=== PATIENT | female | born 1955 | race Asian ===

== ENCOUNTER 2016-07-30 10:07 | Emergency (ER) | payer OTHER ==
[~2016-07-30] VITALS: Ht 165.1 cm; Wt 66.0 kg
[~2016-07-30 10:07] MED LIST: ACET-171 PO
[2016-07-30 10:09] VITALS: PULSE 79; RESP 32; O2SAT 99
--- NOTE | 2016-07-30 10:25 | ED.REPORT ---
HPI-General Illness Date of Service July 30, 2016 ED Provider: The patient is a 60 year old female who was sent to the emergency department from urgent care for chest tightness. The patient was at urgent care complaining of UTI symptoms that started this morning. She gave them a sample that had been dipped and sent for culture. While she was at urgent care she when asked about chest pain or pressure, she admitted to recent chest tightness. The patient reports she occasionally experiences chest tightness when she is getting ready for bed at night. She also mentions she has similar pains when she is under a lot of stress. The pain is usually located to the center of her chest. She is not currently in any pain or discomfort. She is not on any chronic medications. She is currently taking antibiotics that were left over from a previous infection last month. She is unsure which antibiotic it was. Nursing Notes Stated Complaint: POSSIBLE UTI/CHEST PAIN SENT FROM URGENT CARE Chief Complaint: Chest Pain Nursing Notes Reviewed: Yes Allergies: Coded Allergies: tramadol (Unverified Allergy, Unknown, UNKNOWN, 07/30/16) Scheduled Sulfamethoxazole/Trimeth 800-160 mg (Bactrim DS) 1 Each Tablet 1 TABLET PO BID Scheduled PRN Acetaminophen (Acetaminophen) 500 Mg Tablet 500 MG PO Q6H PRN PRN For Pain General Time Seen by MD: 10:25 Chief Complaint Chest pain Hx Obtained From: Patient Arrived By: Walk-in Sudden in Onset?: Yes Onset Occurred: 1 - 4 hours ago Symptom Duration: 16 - 30 minutes Location: : Chest Quality: Painful (tightness) Severity: Current: No pain currently Severity: Maximum: Moderate Recent Healthcare: No recent hospitalization, Recent doctor visit Similar Sx Previous: No Past Medical History Past Medical History Denies Family History Noncontributory Smoking History Unknown if Ever Smoker Social History Other Social History: , Local resident Ambulatory Status Independent Review of Systems Full Review of Systems Cardiovascular: Reports: Chest pain (not currently) Female: Reports: Dysuria, Urinary frequency, Urinary urgency Psychiatric: Reports: Anxiety Complete sys rev & neg: except as marked. Physical Exam Vital Signs Vital Signs Date Time Temp Pulse Resp B/P Pulse Ox O2 Delivery O2 Flow Rate FiO2 07/30/16 11:34 59 14 132/83 07/30/16 11:32 56 163/107 07/30/16 10:35 61 27 147/87 98 Room Air 07/30/16 10:09 36.6 79 32 99 Room Air Initial VS: Reviewed Head / Eyes: Atraumatic, Normocephalic, PERRL ENT: Mucous membranes moist, Conjunctiva normal, No scleral icterus Neck: Supple, Non-tender, Full range of motion Cardiovascular: Regular rate & rhythm, Heart sounds normal, Intact distal pulses Skin: Warm, Dry, No cyanosis Neurologic: Alert, Oriented, Nonfocal Psychiatric: Mood/affect normal, Behavior normal, Normal thought content General/Constitutional: Awake, Alert, Cooperative Respiratory / Chest: Breath sounds NL, Breath sounds = bilat, No respiratory distress, No rales, No rhonchi, No wheezing Costocondral tenderness at the upper left side of the sternum. Abdomen: Soft, No guarding, No rebound, BS normoactive, No distention, No hernia, No palpable mass, No pulsatile mass Tenderness/Guarding/Rebound: Positive: Tender suprapubic Back: No midline vertebral tend Flank / Spine / Paraspinal: Positive: Flank tender R (mild) Interpretation & Diagnostics Lab Results Interpretation Result Diagram: 07/30/16 1130 07/30/16 1130 Test 07/30/16 11:30 White Blood Count 6.5th/mm3 (3.8-10.1) Red Blood Count 4.53mil/mm3 (3.90-5.20) Hemoglobin 13.5g/dL (12.0-15.6) Hematocrit 40.1% (35.0-46.0) Mean Corpuscular Volume 88.5fL (81-100) Mean Corpuscular Hemoglobin 29.8pg (27.0-35.0) Mean Corpuscular Hemoglobin Concent 33.7% (32.0-37.0) Red Cell Distribution Width 12.7% (12.3-15.4) Platelet Count 125bil/L (150-400) Neutrophils (%) (Auto) 63.7% (40-74) Lymphocytes (%) (Auto) 28.0% (14-46) Monocytes (%) (Auto) 5.3% (4-12) Eosinophils (%) (Auto) 2.2% (0-5) Basophils (%) (Auto) 0.6% (0-3) Sodium Level 141mEq/L (134-144) Potassium Level 4.2mEq/L (3.5-5.2) Chloride Level 105mEq/L (97-108) Carbon Dioxide Level 22mmol/L (18-29) Blood Urea Nitrogen 13mg/dL (6-24) Creatinine 0.63mg/dL (0.57-1.00) Estimat Glomerular Filtration Rate 139mL/min (>59) Glucose Level 102mg/dL (60-99) Calcium Level 9.6mg/dL (8.5-10.1) Magnesium Level 2.2mg/dL (1.6-2.6) Total Bilirubin 0.4mg/dL (0.0-1.2) Aspartate Amino Transf (AST/SGOT) 20U/L (0-50) Alanine Aminotransferase (ALT/SGPT) 16U/L (0-32) Alkaline Phosphatase 74U/L (25-150) Troponin T < 0.010ug/L (0.0-0.011) Total Protein 7.5g/dL (6.4-8.4) Albumin 4.5g/dL (3.4-5.0) Hold Pritchett Top Tube Received (Received) ECG Interpretation ECG Interpretation: Sinus rhythm with a rate of 56 Time: 10:40 Interpreted by: ED physician X-Ray Chest Interpretation Chest Xray Interpretation: IMPRESSION: Normal chest Dictated by: Jama Torres M.D. on 07/30/2016 at 11:03 Interpretation / Wet Read by: Interpret - Radiologist Re-Eval/Medical Decision Source of Hx: Old records Time of Eval: 11:43 Re-Evaluation/Progress Note: Discussed plan to wait for lab results. Time of Eval: 13:36 Re-Evaluation/Progress Note: Rechecked the patient. Discussed results, diagnosis, and plan for discharge. All questions were addressed. Counseled Regarding: Diagnosis, Lab results, Need for follow-up, When/why to return to ED Discharge & Departure Primary Impression: UTI (urinary tract infection) Urinary tract infection type: site unspecified Hematuria presence: without hematuria Qualified Code: N39.0 - Urinary tract infection, site not specified Additional Impression: Costochondritis Ruled Out: STEMI (ST elevation myocardial infarction) Disposition: Home Discharge Condition All VS Reviewed: Yes Condition: Stable Patient Instructions: Costochondritis (ED), Urinary Tract Infection in Women ( GEN) Additional Instructions: Thank you for entrusting us with your care today. Your blood work and EKG are reassuring. There is no evidence of a heart attack. I believe your chest pain is consistent with costochondritis. I have attached a packet to your instructions with more information. Your urinalysis does show evidence of a UTI. Take the antibiotics as prescribed. Septra DS am and pm for 7 days. I have electronically sent this to [facility] for you today. Make sure to drink plenty of fluids. Followup with your regular doctor next week if your symptoms are not improving. Seek care sooner for any new or concerning symptoms. Referrals: Jus Oliver DO (PCP) Scribe Attestation Portions of this note were transcribed by Sara Hightower. I, Dr. Sol personally performed the history, physical exam and medical decision-making; I reviewed and confirmed the accuracy of the information in the transcribed note. Signed by: Veronica Tomlin,07/30/2016 at 1400. copies to: Jus Oliver Shawna L MD July 30, 2016 10:25 Sara Hightower July 30, 2016 11:01
[2016-07-30 10:35] VITALS: BP 147/87; PULSE 61; RESP 27; O2SAT 98
--- NOTE | 2016-07-30 11:05 | DRSVH ---
PROCEDURE: X-RAY CHEST ONE VIEW, PORTABLE ([id number]) INDICATIONS: chest pain TECHNIQUE: One view of the chest was acquired. COMPARISON: None. FINDINGS: Surgical changes and devices: None. Lungs and pleura: No pleural effusions or pneumothorax. Lungs are clear. Bilateral nipple shadows. Mediastinum: Mediastinal contours appear normal. Heart size is normal. Bones and chest wall: No suspicious bony lesions. Overlying soft tissues appear unremarkable. IMPRESSION: Normal chest Dictated by: Jama Torres M.D. on 07/30/2016 at 11:03 Approved by: Jama Torres M.D. on 07/30/2016 at 11:04
[2016-07-30 11:32] VITALS: BP 163/107; PULSE 56
[2016-07-30 11:34] VITALS: BP 132/83; PULSE 59; RESP 14
[2016-07-30 11:51] LABS: BASOPHILS % (AUTO) 0.6 % (0-3); EOSINOPHILS % (AUTO) 2.2 % (0-5); MONOCYTES % (AUTO) 5.3 % (4-12); Mean Corpuscular Hemoglobin 29.8 pg (27.0-35.0); Mean Corpuscular Volume 88.5 fL (81-100); NEUTROPHILS % (AUTO) 63.7 % (40-74); Platelet Count 125 bil/L (150-400)
[2016-07-30 12:26] LABS: TROPONIN T < 0.010 ug/L (0.0-0.011)
[2016-07-30 12:32] LABS: Magnesium 2.2 mg/dL (1.6-2.6)
[2016-07-30] MEDS ORDERED: SULF1TAB7 PO (13:34)
[2016-07-30 13:39] VITALS: BP 132/83; PULSE 59; RESP 14; O2SAT 98
== END 2016-07-30 13:40 | disposition home or self-care (01) ==
LOC: SED 10:07
DX: N39.0 Urinary tract infection, site not specified (principal); M94.0 Chondrocostal junction syndrome [Tietze]; Z88.8 Allergy status to other drugs, medicaments and biological substances